=== PATIENT | male | born 1985 | race Caucasian/White ===

== ENCOUNTER 2017-01-27 20:07 | Emergency (ER) | payer MEDICAID ==
--- NOTE | 2017-01-27 20:38 | Emergency Department Record ---
History of Present Illness - General Chief Complaint: Ankle/Foot Injury Stated Complaint: R HEEL INJURY Time Seen by Provider: 01/27/17 20:30 Source: Patient Mode of Arrival: Ambulatory Limitations: No limitations - History of Present Illness Initial Comments: 31 yo male presents to ED with a CC of pain and swelling to the right heel after walking around in the [facility] yesterday. Patient is concerned that he may a foreign body near the heel of the foot. Patient denies specific injury that he can remember, but woke up this morning with pain and swelling to the area. MD Complaint: Foot injury Onset/Timin -: Days(s) Injury: Foot: Right Type of Injury: Unknown Place: Street/outdoors Severity scale (1-10): 5 Improves With: Rest Worsens With: Weight bearing Context: Other Associated Symptoms: Tingling, Other - Related Data Previous Rx's Medication Instructions Recorded Amoxicillin/Potassium Clav 1 tab PO BID #19 tab 01/27/17 [Augmentin 875-125 Tablet] Allergies Allergy/AdvReac Type Severity Reaction Status Date / Time No Known Drug Allergies Allergy Verified 01/27/17 20:15 Travel Screening - Travel/Exposure Within Last 30 Days Have you traveled within the last 30 days?: No - Travel/Exposure Within Last Year Have you traveled outside the [place] in the last year?: No - Additonal Travel Details Have you been exposed to anyone with a communicable illness?: No - Travel Symptoms Symptom Screening: None Review of Systems Constitutional: Denies: Chills, Fever, Malaise, Night sweats Eyes: Denies: Eye discharge, Eye pain ENT: Denies: Congestion, Ear pain, Epistaxis Respiratory: Denies: Cough, Dyspnea Cardiovascular: Denies: Chest pain, Dyspnea on exertion Endocrine: Denies: Fatigue, Heat or cold intolerance Gastrointestinal: Denies: Abdominal pain, Nausea, Vomiting Genitourinary: Denies: Incontinence, Retention Musculoskeletal: Reports: Myalgia. Denies: Arthralgia, Back pain, Gout, Joint swelling Skin: Denies: Bruising, Change in color, Rash Neurological: Denies: Abnormal gait, Confusion, Headache, Seizure Psychiatric: Denies: Anxiety Hematological/Lymphatic: Denies: Anemia, Blood Clots Past Medical History - SOCIAL HISTORY Smoking Status: Never smoker Alcohol Use: Occassional Drug Use: Rare Drug Use Detail:: Marijuana - RESPIRATORY Hx Respiratory Disorders: No - CARDIOVASCULAR Hx Cardio Disorders: No - NEURO Hx Neuro Disorders: No - GI Hx GI Disorders: Yes Hx Crohn's Disease: Yes Comment:: ibs - Hx Genitourinary Disorders: No - ENDOCRINE Hx Endocrine Disorders: No - MUSCULOSKELETAL Hx Musculoskeletal Disorders: Yes Comment:: muscle deteriation disorder - PSYCH Hx Psych Problems: No - HEMATOLOGY/ONCOLOGY Hx Hematology/Oncology Disorders: No Family Medical History Any Significant Family History?: No Physical Exam - General General Appearance: Alert, Oriented x3, Cooperative, No acute distress Limitations: No limitations - Head Head exam: Atraumatic, Normocephalic, Normal inspection Head exam detail: negative: Abrasion, Contusion, العراقي's sign, General tenderness, Hematoma, Laceration - Eye Eye exam: Normal appearance. negative: Conjunctival injection, Periorbital swelling, Periorbital tenderness, Scleral icterus - ENT Ear exam: negative: Auricular hematoma, Auricular trauma Nasal Exam: negative: Active bleeding, Discharge, Dried blood, Foreign body Mouth exam: negative: Drooling, Laceration, Muffled voice, Tongue elevation - Neck Neck exam: Normal inspection. negative: Meningismus, Tenderness - Respiratory Respiratory exam: Normal lung sounds bilaterally. negative: Rales, Respiratory distress, Rhonchi, Stridor - Cardiovascular Cardiovascular Exam: Regular rate, Normal rhythm, Normal heart sounds - GI/Abdominal GI/Abdominal exam: Soft. negative: Rebound, Rigid, Tenderness - Rectal Rectal exam: Deferred - exam: Deferred - Extremities Extremities exam: Tenderness, Other (Mild TTP to the medial heel, no obvuious FB is present on examination). negative: Calf tenderness, Pedal edema - Back Back exam: Denies: CVA tenderness (R), CVA tenderness (L) - Neurological Neurological exam: Alert, Normal gait, Oriented X3 - Psychiatric Psychiatric exam: Normal affect, Normal mood - Skin Skin exam: Normal color. negative: Abrasion Type of lesion: negative: abrasion Course Vital Signs 01/27/17 20:14 Temperature 98.2 F Pulse Rate 60 Respiratory 18 Rate Blood Pressure 128/74 Pulse Ox 97 - Reevaluation(s) Reevaluation #1: 01/27/17 21:07 Right foot: No evidence for radio-opaque FB Procedure Note: Right medial heel was cleaned with Betadine, anesthetized with 1 % Lidocaine with Epi with good anesthesia. Area was unroofed (approximately 0.5 cm in diameter)using a #11 blade, hemostats, and scissors, no FB identified. Will initiate antibiotics for possible puncture wound and subsequent infection. Patient appears stable for discharge at this time. Medical Decision Making - Lab Data Result diagrams: 01/27/17 20:46 01/27/17 20:46 Disposition Disposition: Discharge Clinical Impression: Puncture wound of foot Qualifiers: Encounter type: initial encounter Laterality: right Qualified Code(s): S91.331A - Puncture wound without foreign body, right foot, initial encounter Disposition: Home, Self-Care Condition: (2) Stable Instructions: Puncture Wound (ED) Additional Instructions: Return to ED if your symptoms worsen or if you have any concerns. Augmentin as directed. Follow-up with your family doctor in 3-5 days as directed. Prescriptions: Amoxicillin/Potassium Clav [Augmentin 875-125 Tablet] 1 tab PO BID #19 tab Forms: Patient Portal Access Time of Disposition: 21:11
[2017-01-27] MEDS ORDERED: AMOXICILLIN/POTASSIUM CLAV 875MG/125MG TABLET PO ONE (21:11)
--- NOTE | 2017-01-29 07:57 | RADIOLOGY REPORT ---
EXAM: RIGHT FOOT COMPLETE HISTORY: STEPPED ON SOMETHING TODAY WITH PUNCTURE WOUND IN HEEL REGION. EVALUATE FOR FOREIGN BODY. TECHNIQUE: Three views of the right foot were obtained. Comparison: None. Encounter: Initial. FINDINGS: There is normal bone mineralization. No acute fracture, dislocation , or destructive bone lesion is seen. The articular relations are grossly maintained. Mild developmental beaking/spurring of the dorsal proximal margin of the navicula is present. No periarticular erosion. No suspicious focal soft tissue abnormality. There is a tiny calcific density in the region of the second toenail of doubtful clinical significance. IMPRESSION: NO ACUTE FRACTURE, DISLOCATION, NOR SUSPICIOUS FOREIGN BODY. JOB NUMBER: [id number] MTDD
== END 2017-01-27 21:26 | disposition home or self-care (01) ==
LOC: ER 20:07
DX: S91.331A Puncture wound without foreign body, right foot, initial encounter (principal); W45.8XXA Other foreign body or object entering through skin, initial encounter; Y93.01 Activity, walking, marching and hiking; Y92.828 Other wilderness area as the place of occurrence of the external cause
CPT/HCPCS: 99283; 99284